=== PATIENT | female | born 1960 | race Caucasian/White ===

== ENCOUNTER 2018-08-31 04:15 | Outpatient (CLI) | payer BC, SELFPAY ==
--- NOTE | 2018-08-31 | PFT_ITS ---
PULMONARY FUNCTION TEST REPORT Patient - Morenita Rojas 62 DATE OF SERVICE August 31, 2018 REQUESTING PROVIDER Iman Wallace M.D. INTERPRETATION OF STUDY Spirometry shows no evidence of obstructive airways disease. No bronchodilator response. LUNG VOLUMES - Lung volumes show no evidence of restriction. DIFFUSION CAPACITY- Mildly reduced even when corrected to alveolar volume. AIRWAY RESISTANCE - Normal. IMPRESSION Isolated mild diffusion defect. This finding can be seen in noncommunicating bullous disease or in early developing interstitial lung disease or pulmonary hypertension. Therefore, clinical correlation and possible further workup is recommended if any of these entities are suspected. When this study was compared to previous one from 10/17/17, the patient has a 170 cc increase in FVC and FEV1 had increased by 390 cc. Lucy Lunsford M.D. DOROTHY/ T 09/05/2018
[2018-08-31] MEDS: Inhaler, Assist Device 1 EACH MC (11:00)
[2018-08-31] MEDS: Albuterol HFA 18 GM 200 PUFF INH IH (11:00)
== END 2018-08-31 04:35 ==
PROVIDERS: PCP Internal Medicine; Visit Provider Internal Medicine
DX: J45.909 Unspecified asthma, uncomplicated (principal); J18.9 Pneumonia, unspecified organism
CPT/HCPCS: 94060; 94150; 94726; 94729

== ENCOUNTER 2018-11-05 02:26 | Outpatient (CLI) | payer BC, SELFPAY ==
--- NOTE | 2018-11-05 10:00 | PFT_ITS ---
DATE OF SERVICE: November 05, 2018 REQUESTING PROVIDER: Addy Abreu M.D. INTERPRETATION OF STUDY: Spirometry shows moderately severe obstructive airways disease with significant bronchodilator response. The pre-bronchodilator spirometry was also somewhat poor patient effort. IMPRESSION: Somewhat poor patient effort for pre-bronchodilator spirometry. There is moderately severe obstructive airways disease with significant bronchodilator response. When this study was compared to previous one from 10/17/17 and 08/31/18, the patient has a slight decline in FVC of a total of 190 cc; FEV1 has been stable. This may be, however, an effort-related phenomenon. Clinical correlation therefore recommended. cc: Addy Abreu M.D.
[2018-11-05] MEDS: Inhaler, Assist Device 1 EACH MC (11:23)
[2018-11-05] MEDS: Albuterol HFA 18 GM 200 PUFF INH IH (11:23)
== END 2018-11-05 02:46 ==
PROVIDERS: PCP Internal Medicine; Visit Provider Internal Medicine Pulmonary Disease
DX: R06.2 Wheezing (principal); Z87.891 Personal history of nicotine dependence
CPT/HCPCS: 94060